=== PATIENT | female | born 1985 | race Caucasian/White ===

== ENCOUNTER 2017-07-14 16:51 | Emergency (ER) | payer OTHER ==
[~2017-07-14] VITALS: Ht 167.6 cm; Wt 102.1 kg
[~2017-07-14 16:51] MED LIST: Colace 100MG PO; Mylicon 125MG PO; OXYC1TAB9 PO; PRENATE ADVANCE PO; Synthroid PO
[2017-07-14] MEDS ORDERED: ADULT ASPIRIN81 MG PO (18:33)
[2017-07-15] MEDS ORDERED: ZOFRAN4 MG PO (02:35)
[2017-07-15] MEDS ORDERED: PEPCID40 MG PO (02:35)
== END 2017-07-15 02:31 | disposition home or self-care (01) ==
LOC: ER 16:51
DX: K52.9 Noninfective gastroenteritis and colitis, unspecified (principal)

== ENCOUNTER 2017-09-04 09:45 | Inpatient (IN) | payer OTHER ==
[~2017-09-04] VITALS: Ht 167.6 cm; Wt 106.1 kg
[~2017-09-04 09:45] MED LIST changes: +ADULT ASPIRIN81 MG PO; +PEPCID40 MG PO; +ZOFRAN4 MG PO
[2017-09-18] MEDS ORDERED: ASPIRIN EC81 MG PO (12:01)
== END 2017-09-18 12:08 | disposition home or self-care (01) | DRG 766 ==
LOC: OB/GYN 09-07 09:45 → O/R 09-15 09:42 → OB/GYN 09-15 16:45
PROVIDERS: Obstetrics & Gynecology
PROC: 0UL70ZZ Occlusion of Bilateral Fallopian Tubes, Open Approach (ICD-10-PCS; 2017-09-15)
PROC: 4A1HXCZ Monitoring of Products of Conception, Cardiac Rate, External Approach (ICD-10-PCS; 2017-09-15)
PROC: 10D00Z1 Extraction of Products of Conception, Low, Open Approach (ICD-10-PCS; principal; 2017-09-15 07:00)
DX: O13.4 Gestational [pregnancy-induced] hypertension without significant proteinuria, complicating childbirth (principal); Z3A.38 38 weeks gestation of pregnancy; Z37.0 Single live birth; Z30.2 Encounter for sterilization